=== PATIENT | female | born 1995 | race African-American/Black ===

== ENCOUNTER → 2016-10-17 | Outpatient (CLI) | payer OTHER | END | disposition home or self-care (01) | LOC: WWCWWP 12:06 | PROVIDERS: ATTEND Obstetrics & Gynecology ==

== ENCOUNTER → 2017-01-01 | Outpatient (CLI) | payer OTHER ==
--- NOTE | 2017-01-02 07:09 | WWHP ---
DATE OF SERVICE: 01/01/2017 CHIEF COMPLAINT: The patient is here for her routine gynecologic exam. HPI: This is a 21-year-old G0 with an LMP of 11/14/2016. Her Nexplanon implant was removed here on 10/17/2016. She declined any other method of control and has been using condoms for control since then. She states she has not used condoms consistently but he would withdraw the times a condom was not used. She understands she has missed a period this month, but has not taken a test. She does have some nausea without emesis. She denies significant breast tenderness. She does have a history of a right ovarian cyst found on ultrasound on 09/16/2015. She did not have the repeat ultrasound done as was recommended. PAST MEDICAL HISTORY: Asthma. MEDICATIONS: Albuterol inhaler p.r.n. ALLERGIES: No known drug allergies. PAST SURGICAL HISTORY: Laparoscopic cholecystectomy in 2012. PAST GOVERNMENT AFFAIRS DIRECTOR HISTORY: She did complete her Gardasil vaccination series and has no history of STDs. She did use a Nexplanon between 2013 to 10/2016. She did have some irregular bleeding with it and also she felt it caused constipation. SOCIAL HISTORY: She denies tobacco and drug use and has about a half of an alcoholic drink every month. She is currently going to school and would like to go into patient care. She has been with her boyfriend since 2016 and has been with him for about one year. This is her second sexual partner. Family history is unchanged from the 2016 H&P. REVIEW OF SYSTEMS: She has lost 2 pounds over the last year. She denies respiratory, cardiac, or GI problems. PHYSICAL EXAM: Blood pressure is 97/64. Height 5 feet 6 inches. Weight 165 pounds. Temperature 97.6, pulse 86. This a well-developed, well-nourished black female who is alert and oriented x3 in no acute distress. HEENT is within normal limits. NECK: Supple without mass or thyromegaly. CHEST AND LUNGS: Clear to auscultation. HEART: Regular rate and rhythm. Breasts are without mass or discharge. Axillary exam is negative for adenopathy. BACK: Negative for CVA tenderness. ABDOMEN: Soft, nontender, without palpable masses. PELVIC EXAM: Normal external genitalia. Cervix and vagina appear normal. There is no unusual discharge. There is no cervical motion tenderness. The uterus is midposition, nongravid size and nontender. There are no palpable adnexal masses. There is minimal right adnexal tenderness with deep palpation. There is no left adnexal tenderness. Rectovaginal exam is negative for mass or tenderness. EXTREMITIES: Nontender. IMPRESSION: 1. A 21-year-old female with recent missed menstrual period. Oligomenorrhea. Differential diagnosis will include , irregularity following discontinuation of Nexplanon and idiopathic oligomenorrhea. 2. History of a 6 cm right ovarian cyst without significant physical findings at this time other than minimal tenderness. 3. The patient has been using condoms for control as well as withdrawal. She has not been consistently using condoms. PLAN: 1. Pap smear was performed. 2. Self breast examination was discussed. 3. GC and Chlamydia screening was obtained from the cervix. 4. Urine hCG will be performed today. 5. The patient will be scheduled for pelvic ultrasound to follow up on her ovarian cyst that she had in 09/2015. 6. We have had a long discussion regarding STD prevention. I stressed the importance of limiting sexual partners and using condoms if she is sexually active. 7. We have discussed control options. She is declining any method for control other than condoms at this time. She will let me know if she changes her mind. I stressed importance of using condoms consistently. 8. I have also recommended that she take a multivitamin with folic acid 1 daily. 9. She will return in one year and p.r.n.
== END | disposition home or self-care (01) ==
LOC: WWCWWP 15:36
PROVIDERS: ATTEND Obstetrics & Gynecology
DX: N91.4 Secondary oligomenorrhea (principal); Z11.3 Encounter for screening for infections with a predominantly sexual mode of transmission
CPT/HCPCS: 81025; 87491; 87591

== ENCOUNTER → 2017-03-12 | Outpatient (CLI) | payer OTHER ==
[2017-03-12 16:55] LABS: Hepatitis B Surface Ag Index 0.14
[2017-03-12 17:13] LABS: Hepatitis C Virus IgG Ab Negative (Negative); Hepatitis C Virus IgG Index 0.02
[2017-03-13 00:51] LABS: Treponemal Ab Non-Reactive (Non-Reactive)
== END | disposition home or self-care (01) ==
LOC: LABWHC1 15:21
PROVIDERS: ATTEND Obstetrics & Gynecology
DX: Z11.3 Encounter for screening for infections with a predominantly sexual mode of transmission (principal); A56.09 Other chlamydial infection of lower genitourinary tract
CPT/HCPCS: 36415; 86780; 86803; 87340; 87390

== ENCOUNTER → 2017-03-12 | Outpatient (CLI) | payer OTHER ==
--- NOTE | 2017-03-12 15:43 | P.PN ---
Subjective Principal diagnosis: This is a 21 year old G0 within LMP of 02/25/2017. The patient was treated for chlamydia in December. She was treated with Zithromax. Partner states he was treated by his healthcare provider. She has been abstaining from sexual activity since her treatment. She is here for a recheck. The patient has also been experiencing some abdominal pains. She was previously seen for pelvic and lower abdominal pain in the past. She was found to have a 6 cm right ovarian cyst on 09/16/2015. She was advised to have a repeat ultrasound of the pelvis when she was seen here in December. She did not have the follow-up ultrasound. She states the pain that was associated with the cyst was in the lower abdomen but now she experiences pains in the epigastric region. She states it can be sharp, crampy or burning. The pain varies in nature at different times. She relates the pain at a 4 out of 10. Review of systems: she denies respiratory or cardiac problems. G.I.: she states her appetite has not been very good. She states the epigastric pain does not seem to be related with eating. She denies fever. Objective - Vital Signs Vital signs: Blood pressure 117/76, height 5 feet 5 1/2 inches, weight 160 pounds, temperature 97.8, pulse 67. - Exam This is a well-developed well-nourished black female who is alert and oriented times 3 in no acute distress. Abdomen soft with mild epigastric tenderness without rebound tenderness. The rest of the abdomen is nontender. There are no palpable abdominal masses. The abdomen is nondistended. Pelvic exam: normal external genitalia. Cervix and vagina appear normal. There is no unusual vaginal discharge. There is no cervical motion tenderness. Uterus is midposition non-gravid size and nontender. There are no palpable adnexal masses. There is minimal right adnexal tenderness. Assessment and Plan (1) Chlamydia trachomatis infection of lower genitourinary site Narrative/Plan: She is status post treatment with Zithromax. Her partner was apparently treated. Repeat testing for GC and Chlamydia was obtained from the cervix. She will be tested for additional STDs. Bloodwork today will include HIV, RPR, hepatitis B surface antigen and hepatitis C antibody. STD prevention was discussed. I have recommended that she limits sexual partners and if she is going to be sexually active she was advised to use condoms. I also stressed the importance of her making sure that her partner has been treated for chlamydia. Status: Acute (2) Cyst of right ovary Narrative/Plan: The patient has not had the follow-up pelvic ultrasound as recommended. In order slip was given to the patient for a pelvic ultrasound and she will schedule this today. Status: Acute (3) Epigastric pain Narrative/Plan: We have discussed how her epigastric pain may or may not be related to an ovarian cyst. A pelvic ultrasound will be done to check for the ovarian cyst that was previously seen which measured 6 cm. Since I am unable to palpate a pelvic mass at this time. I doubt that her epigastric pain is related to ovarian cyst. I recommended that she follow up with the primary care physician. She states she will establish with a primary care physician since she does not have one at this time. Status: Acute Time with Patient: Less than 30 (Total time spent with patient 25 minutes.)
== END | disposition home or self-care (01) ==
LOC: WWCWWP 14:42
PROVIDERS: ATTEND Obstetrics & Gynecology
DX: A56.09 Other chlamydial infection of lower genitourinary tract (principal)
CPT/HCPCS: 87491

== ENCOUNTER → 2017-04-09 | Outpatient (CLI) | payer OTHER ==
--- NOTE | 2017-04-09 15:14 | US ---
EXAMINATION TYPE: US pelvis complete transvag DATE OF EXAM: 04/09/2017 COMPARISON: Previous study dated 01/11/2016. CLINICAL HISTORY: Previous Ovarian Cyst Rgt N83.20,Abn Pap. TECHNIQUE: Transvaginal (TV) and Transabdominal (TA) supplemental TV for ovaries viz Date of LMP: 03/17/2017 EXAM MEASUREMENTS: Uterus: 5.8 x 3.3 x 5.6 cm Endometrial Stripe: 1.1 cm Right Ovary: 2.3 x 1.5 x 1.1 cm Left Ovary: 2.0 x 1.5 x 1.6 cm 1. Uterus: Retroverted 2. Endometrium: thick 3. Right Ovary: small follicular cysts 4. Left Ovary: small follicular cyst 5. Bilateral Adnexa: wnl 6. Posterior cul-de-sac: wnl IMPRESSION: RESOLUTION OF THE PATIENT'S PREVIOUSLY DESCRIBED 5.2 CM, RIGHT OVARIAN CYST.
--- NOTE | 2017-04-09 15:43 | P.PN ---
Progress Note - Text S: The patient is without complaints. She is here for repeat Pap smear. Pap smear done on 01/01/2017 was unsatisfactory. O: Blood pressure 94/61, height 5'6", weight 163 pounds, temperature 97.3, pulse 69. This is a well-developed well-nourished black female who is alert and oriented times 3 in no acute distress. Pelvic exam: external genitalia is within normal limits. Cervix and vagina. Normal. There is no unusual vaginal discharge. The cervix appears nulliparous without lesions. Additional studies: pelvic ultrasound done today is unremarkable. There was resolution of the previous 5.2 cm right ovarian cyst seen on 09/16/2015. A: 1. 22-year-old female with resolution of the right ovarian cyst. 2. Previous unsatisfactory Pap smear with inadequate cells. Plan: 1. Pap smear was performed. 2. The patient will work returning approximately 10 months for her annual examination. 3. STD prevention was discussed. I have stressed the importance of limiting sexual partners and use condoms if she is sexually active.
== END ==
LOC: RADUSWWP 14:31
PROVIDERS: ATTEND Obstetrics & Gynecology
DX: N83.201 Unspecified ovarian cyst, right side (principal)
CPT/HCPCS: 76830; 76856